=== PATIENT | female | born 1990 | race African-American/Black ===

== ENCOUNTER 2021-10-07 17:55 | Emergency (ER) | payer OTHER ==
[~2021-10-07] VITALS: Ht 172.7 cm; Wt 77.0 kg
[2021-10-07] MEDS ORDERED: KETOROLAC 60MG/2ML VIAL IM ONE (21:00)
[2021-10-07] MEDS ORDERED: IBUP-2030 MT (22:20)
[2021-10-07] MEDS ORDERED: CHLO473M2 MT (22:20)
[2021-10-07] MEDS ORDERED: TRAM50TA3 MT (22:20)
[2021-10-07] MEDS ORDERED: AMOX-494 MT (22:20)
[2021-10-07 22:28] VITALS: BP 128/77
== END 2021-10-07 22:28 | disposition home or self-care (01) ==
LOC: ER 17:55
DX: K04.7 Periapical abscess without sinus (principal); F12.10 Cannabis abuse, uncomplicated; F17.210 Nicotine dependence, cigarettes, uncomplicated; Z71.6 Tobacco abuse counseling
CPT/HCPCS: 96372; 99283; J1885

== ENCOUNTER 2023-07-25 16:25 | Emergency (ER) | payer BC, MEDICAID, OTHER ==
[~2023-07-25] VITALS: Ht 162.6 cm; Wt 90.0 kg
[~2023-07-25 16:25] MED LIST: AMOX-494 MT; CHLO473M2 MT; IBUP-2030 MT; TRAM50TA3 MT
[2023-07-25 16:29] VITALS: O2SAT 99
[2023-07-25] MEDS ORDERED: CLIN-194 MT (17:56)
[2023-07-25] MEDS ORDERED: IBUP-2029 MT (17:56)
[2023-07-25 18:26] VITALS: BP 118/61; PULSE 70; RESP 18; TEMP 98.7
== END 2023-07-25 18:31 | disposition home or self-care (01) ==
LOC: ER 16:25
DX: L73.9 Follicular disorder, unspecified (principal); Z88.2 Allergy status to sulfonamides; Z88.8 Allergy status to other drugs, medicaments and biological substances
CPT/HCPCS: 99283

== ENCOUNTER 2023-12-16 20:45 | Emergency (ER) | payer BC, OTHER ==
[~2023-12-16] VITALS: Ht 167.6 cm; Wt 78.0 kg
[~2023-12-16 20:45] MED LIST changes: +CLIN-194 MT; +IBUP-2029 MT
[2023-12-16 20:54] VITALS: O2SAT 100
[2023-12-16 21:00] VITALS: BP 139/79; PULSE 80; RESP 18; TEMP 98.1; O2SAT 100
== END 2023-12-17 01:39 | disposition left against medical advice (07) ==
LOC: ER 20:45
DX: R07.9 Chest pain, unspecified (principal); Z53.21 Procedure and treatment not carried out due to patient leaving prior to being seen by health care provider
CPT/HCPCS: 71045; 93005

== ENCOUNTER 2024-01-20 18:30 | Emergency (ER) | payer MEDICAID, OTHER ==
[~2024-01-20] VITALS: Ht 162.6 cm; Wt 77.0 kg
[2024-01-20 19:13] VITALS: O2SAT 100
[2024-01-20] MEDS ORDERED: CEPH500C2 MT (20:22)
[2024-01-20] MEDS ORDERED: IBUP-2029 MT (20:48)
[2024-01-20] MEDS ORDERED: CLIN-194 MT (20:49)
[2024-01-20 21:01] VITALS: BP 117/75; PULSE 98; RESP 16; TEMP 36.83628; O2SAT 100
== END 2024-01-20 21:05 | disposition home or self-care (01) ==
LOC: ER 18:30
DX: L72.8 Other follicular cysts of the skin and subcutaneous tissue (principal); Z98.890 Other specified postprocedural states; Z88.2 Allergy status to sulfonamides; Z79.899 Other long term (current) drug therapy
CPT/HCPCS: 99283